=== PATIENT | female | born 1945 | race Caucasian/White ===

== ENCOUNTER → 2019-12-09 | Outpatient (CLI) | payer OTHER | LOC: HYPER 10:47 | DX: T81.31XA Disruption of external operation (surgical) wound, not elsewhere classified, initial encounter (principal); L98.492 Non-pressure chronic ulcer of skin of other sites with fat layer exposed; R21 Rash and other nonspecific skin eruption; R63.0 Anorexia; R54 Age-related physical debility; Z93.2 Ileostomy status; Z85.038 Personal history of other malignant neoplasm of large intestine; Z86.718 Personal history of other venous thrombosis and embolism; Z98.49 Cataract extraction status, unspecified eye; Z90.49 Acquired absence of other specified parts of digestive tract; Y83.8 Other surgical procedures as the cause of abnormal reaction of the patient, or of later complication, without mention of misadventure at the time of the procedure; Y92.89 Other specified places as the place of occurrence of the external cause ==

== ENCOUNTER → 2019-12-23 | Outpatient (CLI) | payer OTHER | LOC: HYPER 12:48 | DX: T81.31XD Disruption of external operation (surgical) wound, not elsewhere classified, subsequent encounter (principal); L98.492 Non-pressure chronic ulcer of skin of other sites with fat layer exposed; R21 Rash and other nonspecific skin eruption; R63.0 Anorexia; R54 Age-related physical debility; Z85.038 Personal history of other malignant neoplasm of large intestine; Z85.09 Personal history of malignant neoplasm of other digestive organs; Z86.718 Personal history of other venous thrombosis and embolism; Y83.8 Other surgical procedures as the cause of abnormal reaction of the patient, or of later complication, without mention of misadventure at the time of the procedure ==